=== PATIENT | male | born 1960 | race Caucasian/White ===

== ENCOUNTER 2018-03-07 09:30 | Inpatient (IN) | payer BC ==
[2018-03-22] MEDS ORDERED: FAMOTIDINE 20MG TABLET PO ONE (06:00)
[2018-03-22] MEDS ORDERED: VANCOMYCIN HCL 1,000 MG in DEXTROSE 5 % IN WATER 250 ML IVPB ONE ×2 (06:00)
[2018-03-22] MEDS ORDERED: MECLIZINE 25 MG TABLET PO ONE (06:00)
[2018-03-22] MEDS ORDERED: CEFAZOLIN 2 Gram 2 GM/50 ML BAG IVPB ONE (06:00)
[2018-03-22] MEDS ORDERED: METOCLOPRAMIDE 10 MG TABLET PO ONE (06:00)
[2018-03-22] MEDS ORDERED: CELECOXIB 100 MG CAPSULE PO ONE (06:00)
[2018-03-22 07:35] LABS: ABO GROUP O; ANTIBODY SCREEN NEGATIVE (NEGATIVE); RH TYPE POSITIVE
[2018-03-22] MEDS ORDERED: HYDROMORPHONE HCL 2 MG/ML VIAL IM PRN (10:12)
[2018-03-22] MEDS ORDERED: ACETAMINOPHEN W/ CODEINE 300MG/60MG TABLET PO PRN ×2 (10:12)
[2018-03-22] MEDS ORDERED: ACETAMINOPHEN 325 MG TAB PO PRN (10:12)
[2018-03-22] MEDS ORDERED: ZOLPIDEM TARTRATE 5 MG TABLET PO PRN (10:12)
[2018-03-22] MEDS ORDERED: ONDANSETRON HCL IV 4 MG/2 ML VIAL IVP PRN (10:12)
[2018-03-22] MEDS ORDERED: HYDROCODONE/APAP 10/325 TABLET PO PRN (10:12)
[2018-03-22] MEDS ORDERED: KETOROLAC 30 MG/ML VIAL IVP PRN ×2 (10:12)
[2018-03-22] MEDS ORDERED: MAGNESIUM HYDROXIDE 30 ML UDC PO PRN (10:12)
[2018-03-22] MEDS ORDERED: TRAMADOL HCL 50 MG TABLET PO PRN (10:12)
[2018-03-22] MEDS ORDERED: AL HYDROX/MAG HYDROX 30ML UD PO PRN (10:12)
[2018-03-22] MEDS ORDERED: BISACODYL 10 MG SUPP RC PRN (10:12)
[2018-03-22] MEDS ORDERED: DIPHENHYDRAMINE HCL 25 MG CAPSULE PO PRN (10:12)
[2018-03-22] MEDS ORDERED: NALOXONE 0.4 MG/1 ML VIAL IVP PRN (10:12)
[2018-03-22] MEDS ORDERED: PANTOPRAZOLE SODIUM 40 MG TABLET PO PRN (10:34)
[2018-03-22] MEDS ORDERED: HYDROMORPHONE PF 1MG/ML **AMPULE IV ONE ×2 (14:00→15:01)
[2018-03-22] MEDS ORDERED: EPHEDRINE SULFATE 50 MG/ML ML IV ONE (14:00)
[2018-03-22] MEDS ORDERED: FENTANYL PF 100MCG/2ML VIAL IV ONE (14:00)
[2018-03-22] MEDS ORDERED: ONDANSETRON HCL IV 4 MG/2 ML VIAL IVP ONE ×2 (14:00→16:00)
[2018-03-22] MEDS ORDERED: PROPOFOL 10 MG/ML VIAL IV ONE (14:00)
[2018-03-22] MEDS ORDERED: *PACU ONLY* KETAMINE HCL 10 MG/ML (20ML) VIAL IV ONE (14:00)
[2018-03-22] MEDS ORDERED: MIDAZOLAM HCL 2MG/2ML VIAL IV ONE (14:00)
[2018-03-22] MEDS ORDERED: DIPHENHYDRAMINE HCL 50 MG/ML VIAL IVP ONE (14:00)
[2018-03-22] MEDS ORDERED: KETOROLAC 30 MG/ML VIAL IVP ONE (14:00)
--- NOTE | 2018-03-22 14:05 | Rehab Evaluation ---
Patient Information - Patient Information Diagnosis: L knee DJD Ordered Treatment: PT Evaluate and Treat Status: Initial Evaluation Surgery: Yes (L TKA) Date of Surgery: 03/22/18 Past Medical/Surgical Hx: PAST MEDICAL/SURGICAL HISTORY Past Surgical History c scopes tonsils PMH - Respiratory Hx Respiratory Disorders No PMH - Cardiovascular Hx Cardiovascular Disorders Yes Hx Abnormal EKG No Hx Cardiac Catheterization No Hx Chest Pain No Hx Congestive Heart Failure No Hx Deep Vein Thrombosis No Hx Edema No Hx Heart Attack No Hx Hypertension Yes: on meds good control Hx Hypotension No Hx Irregular Heartbeat No Hx Palpitations No Hx Pacemaker/Defibrillator No Hx Vascular Disease No Exercise Tolerance Good Hx Transient Ischemic Attacks No (TIA) PMH - Neuro Hx Neurological Disorders Yes Hx Brain Tumor No Hx Cerebrovascular Accident No Hx Dementia No Hx 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 Hx Headaches No Hx Neuropathy No Hx Parkinson's Disease No Hx Seizures No Hx Speech Problem No Hx Syncope No Hx Transient Ischemic Attacks No (TIA) PMH - GI Hx Gastrointestinal Disorders Yes Hx Abdominal Pain No Hx Celiac Disease No Hx Crohn's Disease No Hx Diverticulitis No Hx Gastrointestinal Bleed No Hx Gastroesophageal Reflux Yes: on meds good control Hx Hepatitis/Jaundice No Hx Hiatal Hernia No Hx Irritable Bowel No Hx Liver Disease No Hx Nausea/Vomiting No Hx Obstructive Bowel No Hx Pancreatitis No Hx Rectal Bleeding No Hx Ulcer No Hx Weight Loss/Weight Gain No PMH - Hx Genitourinary Disorders No PMH - Endocrine Hx Endocrine Disorders No PMH - Musculoskeletal Hx Musculoskeletal Disorders Yes Hx Arthritis Yes: left knee Hx Back Injury No Hx Fibromyalgia No Hx Gout No Hx Musculoskeletal Disease No Hx Osteoporosis No PMH - Psych Hx Psychiatric Problems No PMH - Hematology/Oncology Hx Hematology/Oncology No Disorders Premorbid Status: Detail (Prior to surgery the patient was independent with all mobility.) Social History: Detail (The patient lives alone in a one story home. The patient will have someone staying with him. The patient's home has 2 steps at the enterance without railings, however he can pull up on house edge and door knob.) Precautions: Other (WBAT on the L LE.) - Time With Patient Total Time Spent With Patient (Min): 30 Treatment Procedures: Detail (Initial Evaluation.) Subjective Information - Subjective Information Per Patient (The patient has no complaints of pain or other symptoms except for itching.) Objective Data - Mental Status Patient Orientation: Oriented x3 - Visual Perception Appears within normal limits for therapeutic activities - ROM Not within normal limits (The patient's L knee AROM was not tested due to s/p surgery. The patient's other LE AROM was WNL.) - Strength/Tone Not within normal limits (The patient's L LE strength was not formally tested s/ p surgery, however strength is functional ( the patient was able to complete a SLR and lift leg off the bed.) The patient's R LE strength is generally 4+ to 5/ 5.) - Bed Mobility Independent (The patient was independent with supine to and from sit transfer.) - Transfers Independent (The patient was independent with sit to and from stand transfer , however the patient required verbal cues to push up from surface. The patient was independent with toilet transfer.) - Balance Balance Sitting: Good Balance Standing: Good - Gait Detail (The patient ambulated with wheeled walker WBAT on the L LE a distance of distance of 60 feet x 1 with supervision for safety only.) Therapy Assessment - Therapy Assessment Detail (The patient was independent with bed mobility, transfers and ambulation. Feel the patient will progress well with mobility.) Patient Education - Patient Education Teaching Topic: Exercise/Activity (The patient completed TKA exercises including : heel slides, SLR, ankle pumps, quad sets, gluteal sets, hamstring sets.) Response: Return Demonstration Teaching Method: Demonstration, Handout Barriers To Learning: None Problem List - Problem List Physical Therapy Problem List: Detail (1) Decreased L knee AROM and strength following surgery) Goals - Goals Physical Therapy Goals: 1) The patient will ambulate on stairs with supervision only for safety. Prognosis - Prognosis Good Plan - Plan Physical Therapy Plan: PT 1-2 visits for gait training on stairs.
[2018-03-22] MEDS ORDERED: TRANEXAMIC ACID 1,000 MG/10 ML ML IV ONE (14:59)
[2018-03-22] MEDS ORDERED: BUPIVACAINE 0.5% W/EPI MPF 30 ML VIAL IVP ONE (14:59)
[2018-03-22] MEDS: POTASSIUM CHLORIDE/D5-0.9%NACL 20 MEQ/1,000 ML BAG IV SCH ×2 (15:46→19:53)
[2018-03-22] MEDS: CEFAZOLIN 2 Gram 2 GM/50 ML BAG IVPB SCH ×2 (15:46→22:47)
[2018-03-22] MEDS ORDERED: TRIAMTERENE 37.5/HCTZ 25 CAPSULE PO SCH (22:00)
[2018-03-22] MEDS: DOCUSATE SODIUM 100 MG CAPSULE PO SCH (22:19)
[2018-03-23] MEDS: POTASSIUM CHLORIDE/D5-0.9%NACL 20 MEQ/1,000 ML BAG IV SCH ×2 (03:00→10:33)
[2018-03-23] MEDS: CEFAZOLIN 2 Gram 2 GM/50 ML BAG IVPB SCH ×2 (06:20→07:40)
[2018-03-23] MEDS: HYDROCODONE/APAP 10/325 TABLET PO PRN ×4 (06:22→13:48)
[2018-03-23 06:49] LABS: HEMATOCRIT 38.8 % (42.0-52.0); HEMOGLOBIN 12.7 gm/dl (14.0-18.0)
[2018-03-23 07:07] LABS: BLOOD UREA NITROGEN 11 mg/dL (8-23); CREATININE 0.9 mg/dL (0.7-1.2); EST GLOMERULAR FILTRATION RATE > 60 mL/min; GLUCOSE,RANDOM 129 mg/dL (74-109)
--- NOTE | 2018-03-23 09:44 | Physical Therapy Tx Note ---
Physical Therapy Tx Note - Treatment Note Tolerated: Good Total Time Spent With Patient: 20 Physical Therapy Tx Note: Detail (The patient was in bed when PT arrived and reported of level 5 pain in L quad region this am with movement. The patient was independent with supine to and from sit transfer. The patient ambulated with 2 wheeled walker a distance of 80 feet x 1 WBAT on the L LE. The patient ambulated on stairs wiht supervision for safety only with one railing and fold walker. The patient required occasional verbal cues for proper technique. The patient has completed all inpatient goals and is discharged from inpatient PT . The patient is to receive Home PT.) Physical Therapy Problem List: Detail (1) Decreased L knee AROM and strength following surgery) Physical Therapy Goals: GOAL MET 1) The patient will ambulate on stairs with supervision only for safety. Physical Therapy Plan: The patient has met all inpatient PT goals and is discharged from inpatient PT. The patient is to continue with Home PT.
[2018-03-23] MEDS ORDERED: RIVAROXABAN 10 MG TABLET PO SCH (10:00)
[2018-03-23] MEDS ORDERED: HYDROCHLOROTHIAZIDE 25 MG TABLET PO SCH (10:00)
[2018-03-23] MEDS ORDERED: FERROUS SULFATE 325 MG TAB PO SCH (10:00)
[2018-03-23] MEDS ORDERED: ASPIRIN 81 MG TABEC PO SCH (10:00)
[2018-03-23] MEDS ORDERED: VALSARTAN 80 MG TAB PO SCH (10:00)
[2018-03-23] MEDS: DOCUSATE SODIUM 100 MG CAPSULE PO SCH (10:29)
--- NOTE | 2018-03-23 11:52 | Rehab Evaluation ---
Patient Information - Patient Information Diagnosis: L knee DJD Ordered Treatment: OT Evaluate and Treat Status: Initial Evaluation Surgery: Yes (L TKA) Date of Surgery: 03/22/18 Past Medical/Surgical Hx: PAST MEDICAL/SURGICAL HISTORY Past Surgical History c scopes tonsils PMH - Respiratory Hx Respiratory Disorders No PMH - Cardiovascular Hx Cardiovascular Disorders Yes Hx Abnormal EKG No Hx Cardiac Catheterization No Hx Chest Pain No Hx Congestive Heart Failure No Hx Deep Vein Thrombosis No Hx Edema No Hx Heart Attack No Hx Hypertension Yes: on meds good control Hx Hypotension No Hx Irregular Heartbeat No Hx Palpitations No Hx Pacemaker/Defibrillator No Hx Vascular Disease No Exercise Tolerance Good Hx Transient Ischemic Attacks No (TIA) PMH - Neuro Hx Neurological Disorders Yes Hx Brain Tumor No Hx Cerebrovascular Accident No Hx Dementia No Hx 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 Hx Headaches No Hx Neuropathy No Hx Parkinson's Disease No Hx Seizures No Hx Speech Problem No Hx Syncope No Hx Transient Ischemic Attacks No (TIA) PMH - GI Hx Gastrointestinal Disorders Yes Hx Abdominal Pain No Hx Celiac Disease No Hx Crohn's Disease No Hx Diverticulitis No Hx Gastrointestinal Bleed No Hx Gastroesophageal Reflux Yes: on meds good control Hx Hepatitis/Jaundice No Hx Hiatal Hernia No Hx Irritable Bowel No Hx Liver Disease No Hx Nausea/Vomiting No Hx Obstructive Bowel No Hx Pancreatitis No Hx Rectal Bleeding No Hx Ulcer No Hx Weight Loss/Weight Gain No PMH - Hx Genitourinary Disorders No PMH - Endocrine Hx Endocrine Disorders No PMH - Musculoskeletal Hx Musculoskeletal Disorders Yes Hx Arthritis Yes: left knee Hx Back Injury No Hx Fibromyalgia No Hx Gout No Hx Musculoskeletal Disease No Hx Osteoporosis No PMH - Psych Hx Psychiatric Problems No PMH - Hematology/Oncology Hx Hematology/Oncology No Disorders Premorbid Status: Detail (Prior to surgery the patient was independent with all mobility, and I/ADLs, except toileting and showering was modified Ind. with use of grab bars by toilet and shower, and shower chair.) Social History: Detail (The patient lives alone in a one story home. The patient will have someone staying with him "as long as it takes." The patient' s home has 2 steps at the enterance without railings, however he reported he can hold doorframe. Pt has a walk in shower with one grab bar and shower chair. Pt also has a 2WW and access to a long handled shoe horn and prosthetist. 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 but hopes to return within 4 weeks.) Precautions: Other (WBAT on the L LE.) - Time With Patient Total Time Spent With Patient (Min): 20 Objective Data - Pain Pain Present: Yes Pain Scale Used: Numeric (1 - 10) (2/10) - Visual Perception Appears within normal limits for therapeutic activities - ROM Within normal limits (All BUE joints WNL except B supination WFL.) - Strength/Tone Within normal limits (All BUE MMT 5/5.) - Coordination Appears within normal limits for therapeutic activities - Bed Mobility Independent (Bed mobility supine>sit edge of bed modified independent with head of bed raised.) - Transfers Independent (Sit<>stand EOB to 2WW and required min VC to place hands on bed upon standing. Education provided regarding safe t/f technique with sit<>stand ( i.e. push up off bed/chair arm rests, reach back for same surfaces upon sitting , and back up until legs touching surface to sit on before sitting).) - Balance Balance Sitting: Good Balance Standing: Fair - Sensation Intact (light touch on bilateral finger tips) - ADL's/IADL's Detail (Education provided to pt regarding adaptive LB dressing techniques and AE to increase safety and independence with ADL tasks. Pt verbalized understanding of LB dressing techniques and use of AE. Pt donned/doffed sock on LLE Ind. but required increased time for safety. Pt also donned t-shirt Ind. Education provided to pt to avoid placing pillow under L knee, and allowance of WBAT on LLE. Pt. denies Q's/concerns about ADL performance when he returns home. ) Therapy Assessment - Therapy Assessment Detail (Pt. does not need in-Pt. OT services at this time. Pt has a good support system, demonstrated safe ADL tasks, and verbalized understanding of adaptive LB dressing techniques and AE. Pt. has a good environmental set-up, and assistance if needed during recovery period.) Patient Education - Patient Education Teaching Topic: Equipment Use Response: Return Demonstration, Verbalize Understanding Teaching Method: Discussion Teaching Recipient: Patient Barriers To Learning: None Problem List - Problem List Physical Therapy Problem List: Detail (1) Decreased L knee AROM and strength following surgery) Goals - Goals Physical Therapy Goals: GOAL MET 1) The patient will ambulate on stairs with supervision only for safety. Prognosis - Prognosis Good Plan - Plan Physical Therapy Plan: The patient has met all inpatient PT goals and is discharged from inpatient PT. The patient is to continue with Home PT. Occupational Therapy Plan: D/C from in-patient OT services. Pt was educated he could call the rehab department with any questions or concerns throughout recovery process.
--- NOTE | 2018-03-23 19:33 | Operative Note ---
DATE: 03/22/2018 PREOPERATIVE DIAGNOSIS: END-STAGE ARTHROSIS OF THE LEFT KNEE. POSTOPERATIVE DIAGNOSIS: END-STAGE ARTHROSIS OF THE LEFT KNEE. PROCEDURE: Cemented left total knee arthroplasty using [employer]hew Katie II components with a size 7 Oxinium femur, a size 6 stemmed tibial base plate, a 9 mm lipped Highly Crosslinked tibial insert and a 35 mm all-plastic patella. STAFF SURGEON: JASON ABDALLA M.D. ANESTHESIA: SPINAL. PREPARATION: CHLORAPREP. INDIVIDUAL CONSIDERATIONS: NONE. PROCEDURE: The patient was taken to the Operating Room and placed supine on the operating table. He had a successful induction of a spinal anesthetic. His left lower extremity was prepped and draped in the usual fashion. The patient had a midline approach to the knee. Sharp dissection was carried down through the skin and subcutaneous tissues. Small veins were coagulated with a Bovie. A medial arthrotomy was performed. The patella was everted and the knee was flexed. Fat pad was resected, ACL was sacrificed, provisional anterior meniscectomies were performed, and the capsule was released from the medial proximal tibia. The patient had exposed [id number] loss especially medially and extending into the patellofemoral compartment. The initial femoral pilot steam yacht hole was then made freehand. The intramedullary femoral cutting jig was placed. It was cut in 7 degrees of flexion and adjusted for rotation for a 10 mm resection. The initial transverse cut was then made. Skin guide was placed in the anterior and posterior pilot steam yacht holes and it was set for a size 7, which seemed to fit appropriately. The anterior and posterior cuts followed by chamfer cuts were made, osteophytes removed, and a size 7 trial was placed and found to fit well. The tibia was brought forward and the remainder of the meniscal remnants were removed with a Bovie. The extra-articular tibial cutting jig was placed and it was cut in neutral with a 3 degree AP slope. Care was taken to adjust for rotation and flexion using the extra-articular alignment guide and bony landmarks. It was set for a 9 mm resection, keyed off the high lateral side, and secured with pins. When cutting the tibia, care was taken to preserve the PCL insertion on the tibia. With a size 6 baseplate trial and a femoral trial, there was excellent motion and stability. Ligamentous balance, rotation, alignment, and patellofemoral tracking even at this point were normal. I used a 9 mm insert for the trial. Femoral pilot steam yacht holes were impacted, the triflange tibial stamp was impacted, and these trial components were removed. The patient had a thick patella, roughly 9 mm of bone was removed with an oscillating saw. The tourniquet was let down briefly to get bleeders posteriorly then placed back up again. The knee was then thoroughly irrigated out with pulsatile Betadine and saline to remove any visual or palpable debris. Bony surfaces were then dried. A size 6 stem tibial baseplate was cemented into place, followed by impaction of the 9 mm lipped Highly Crosslinked tibial insert , followed by cementing in a size 7 Oxinium femur, followed by cementing in a 35 mm patella. Implant surfaces were compressed, excess cement was removed, and after the cement had set, there was excellent motion and stability. Ligamentous balance, rotation alignment, and patellofemoral tracking were normal. No lateral release was required. Again, thorough irrigation. The tourniquet was let down and hemostasis was obtained with a Bovie. The skin and subcut were infiltrated with 30 mL of 0.50% Marcaine with Epinephrine. The capsule was then closed with a running 2 quill, subcut was closed with running 0 quill in layers , and the skin was closed with katarina. 30 mL of saline with a gram of Tranexamic Acid was injected into the knee and a sterile Bulkee compressive Aquacel-type dressing was applied. The patient tolerated the procedure well. Needle and sponge counts were correct. Estimated blood loss was about 100 mL. There were no complications. JOB NUMBER: [id number] [facility]
--- NOTE | 2018-03-23 20:32 | Discharge Summary ---
DATE OF ADMISSION: 03/22/2018 DATE OF DISCHARGE: 03/23/2018 DATE OF SURGERY: 03/22/2018 HISTORY: Mr. Mccain a delightful 58-year-old male who presents with end- stage arthrosis of his left knee. He was admitted after a left total knee arthroplasty. Postoperatively, he did well. His discharge hemoglobin was 12.7. He did not require transfusion. He did have urinary retention and we put a Dominguez in for twelve hours to decompress it. DISCHARGE INSTRUCTIONS: He will be discharged to home in the care of his family. He will be given [place] and Xarelto with Aspirin for DVT prophylaxis. He will follow-up in my office in four weeks. FINAL DIAGNOSIS/PRIMARY DIAGNOSIS: END-STAGE ARTHROSIS OF THE LEFT KNEE. SECONDARY DIAGNOSES: 1. OPERATIVE BLOOD LOSS ANEMIA, STABLE. 2. URINARY RETENTION, RESOLVED. DISCHARGE CONDITION: GOOD. JOB NUMBER: [id number] [facility]
== END 2018-03-23 14:03 | disposition home or self-care (01) | DRG 470 ==
LOC: MEDSURG 03-22 06:09
PROVIDERS: ADMIT Orthopaedic Surgery; ATTEND Orthopaedic Surgery
PROC: 0SRD069 Replacement of Left Knee Joint with Oxidized Zirconium on Polyethylene Synthetic Substitute, Cemented, Open Approach (ICD-10-PCS; principal; 2018-03-22 08:00)
DX: M17.12 Unilateral primary osteoarthritis, left knee (principal); I10 Essential (primary) hypertension; H81.09 Meniere's disease, unspecified ear
CPT/HCPCS: 80048; 85014; 85018; 86850; 86900; 86901; 97530; J1170; J1200; J1885; J2405; J3480